=== PATIENT | female | born 1975 | race Caucasian/White ===

== ENCOUNTER 2017-01-29 14:26 | Emergency (ER) | payer MEDICAID, OTHER ==
[2017-01-29 14:51] VITALS: BP 114/55
--- NOTE | 2017-01-29 15:11 | ER Document Report ---
ED Fall - General Chief Complaint: Fall Stated Complaint: FALL HIP PAIN Time Seen by Provider: 01/29/17 15:00 Mode of Arrival: Ambulatory Information source: Patient TRAVEL OUTSIDE OF THE [place] IN LAST 30 DAYS: No - HPI Occurred: Yesterday Where: Public place, Work Context: Lost balance Associated symptoms: denies: Lost consciousness, Dazed/confused, Seizure, Difficulty breathing, Difficulty walking, Became dizzy/fainted, Blood in stool Location of injury/pain: Hip, Knee Quality of pain: Achy, Dull Severity: Moderate Pain Level: 2 Notes: Patient states that she was at work cleaning the table off when her leg got caught causing her to twist hit her left axilla on the top of the chair and injured her right knee. Since that time she has had some mild pain in the left axilla area. She also complains of right knee pain and left hip pain. No numbness, tingling, weakness. She denies head injury. She denies any loss of consciousness. She is on no blood thinners. No fever. No nausea, vomiting, diarrhea. No chest pain or shortness of breath. No abdominal pain. Pain is worse with movement and touch, nothing seems to make it better. - Related data Allergies/Adverse Reactions: hydrocodone bitartrate [From Vicodin] Allergy (Severe, Verified 01/29/17 14:50) rash Past Medical History - Social History Smoking Status: Unknown if Ever Smoked Family History: Reviewed & Not Pertinent - Past Medical History Cardiac Medical History: Denies: Hx Heart Attack, Hx Hypertension Pulmonary Medical History: Reports: Hx Tuberculosis Denies: Hx Asthma Neurological Medical History: Denies: Hx Cerebrovascular Accident, Hx Seizures Renal/ Medical History: Denies: Hx Peritoneal Dialysis GI Medical History: Denies: Hx Hepatitis, Hx Hiatal Hernia, Hx Ulcer Skin Medical History: Reports Hx MRSA - right leg in December and face in January Psychiatric Medical History: Reports: Hx Anxiety Infectious Medical History: Reports: Hx MRSA. Denies: Hx Hepatitis Past Surgical History: Reports: Hx Cholecystectomy, Hx Tonsillectomy, Hx Tubal Ligation. Denies: Hx Mastectomy, Hx Open Heart Surgery, Hx Pacemaker - Immunizations Immunizations up to date: Yes Hx Diphtheria, Pertussis, Tetanus Vaccination: Yes Review of Systems - Review of Systems -: Yes All other systems reviewed and negative Physical Exam - Vital signs Vitals: Temp Pulse Resp BP Pulse Ox 98.6 F 84 16 114/55 L 99 01/29/17 14:49 01/29/17 14:49 01/29/17 14:49 01/29/17 14:49 01/29/17 14:49 - Notes Notes: GENERAL: alert, cooperative, nontoxic, no distress. HEAD: normocephalic, atraumatic EYES: conjunctiva pink without discharge, no external redness or swelling. EARS: no external swelling, no external redness NOSE: atraumatic, no external swelling MOUTH/THROAT: mucous membranes moist and pink, posterior pharynx without erythema, swelling, exudate. No trismus or drooling. NECK: soft, supple, full range of motion, no meningismus. Midline tenderness step-offs or crepitus. CHEST: no distress, lungs clear and equal throughout. No wheezing, rales, rhonchi. CARDIAC: regular rate and rhythm, systolic murmur noted, normal capillary refill , normal pulses. No peripheral edema noted. ABDOMEN: Soft, nontender. BACK: full range of motion, no CVA tenderness. Midline tenderness step-offs or crepitus. EXTREMITIES: full range of motion of all extremities. No redness, no swelling. Mild tenderness to palpation to the left axilla. No ecchymosis. No significant swelling. Normal sensation and strength to the upper extremities. Normal pulses. Mild tenderness to palpation to the left posterior hip. Full range of motion of the left hip. Mild tenderness to palpation of the right anterior knee medial. There is ecchymosis noted. No ligament instability. Full range of motion. Normal pulse and sensation distally. NEURO: alert and oriented x 3, no focal deficits, full range of motion of all extremities. PYSCH: appropriate mood, affect. Patient is cooperative. SKIN: pink, warm, dry, no rash. Course - Re-evaluation Re-evalutation: 01/29/17 16:06 The patient is nontoxic appearing with stable vitals. The patient has right knee and left hip pain after falling. She is no ligament instability. X-rays are negative. Patient has a benign exam with no signs of infection or other serious injury. Patient is also noted to have a heart murmur. She states that she has never had this evaluated. I will refer her to cardiology due to the fact that she has never had that evaluated. She will be discharged home with Naprosyn and Ultram. Ice to sore areas. Follow-up if not better in 1 week, sooner for increased pain, fever, redness, swelling, any further concerns. - Vital Signs Vital signs: Temp Pulse Resp BP Pulse Ox 98.6 F 84 16 114/55 L 99 01/29/17 14:49 01/29/17 14:49 01/29/17 14:49 01/29/17 14:49 01/29/17 14:49 - Diagnostic Test Radiology reviewed: Image reviewed, Reports reviewed - Right knee, left hip negative Discharge - Discharge Clinical Impression: Left hip pain, Heart murmur Contusion of right knee Qualifiers: Encounter type: initial encounter Qualified Code(s): S80.01XA - Contusion of right knee, initial encounter Contusion of left axillary region Qualifiers: Encounter type: initial encounter Qualified Code(s): S40.022A - Contusion of left upper arm, initial encounter Condition: Stable Disposition: HOME, SELF-CARE Instructions: Contusion ([facility]) Additional Instructions: Take medications as prescribed. Ice to sore areas. Follow-up with your family doctor if not better in 1 week. Follow-up with cardiology at the next available appointment due to heart murmur. Follow-up sooner for increased pain , fever, redness, any further concerns. Prescriptions: Naproxen 500 mg PO BID #20 tablet Tramadol HCl [Ultram] 50 mg PO TID PRN #10 tablet PRN Reason: Referrals: MONE CASTILLO MD [ACTIVE STAFF] - Follow up as needed
--- NOTE | 2017-01-29 15:46 | RADIOLOGY REPORT (SQ) ---
EXAM DESCRIPTION: KNEE RIGHT 3 VIEWS COMPLETED DATE/TIME: 01/29/2017 3:38 pm REASON FOR STUDY: FALL, PAIN COMPARISON: None. NUMBER OF VIEWS: Three views. TECHNIQUE: AP, lateral, and sunrise patella radiographic images acquired of the right knee. LIMITATIONS: None. FINDINGS: MINERALIZATION: Normal. BONES: No acute fracture or dislocation. No worrisome bone lesions. JOINT: No effusion. SOFT TISSUES: No soft tissue swelling. No radio-opaque foreign body. OTHER: Osteoarthritis patellofemoral compartment. IMPRESSION: NO RADIOGRAPHIC EVIDENCE OF ACUTE INJURY. TECHNICAL DOCUMENTATION: JOB ID: [id number] [employer]- All Rights Reserved
--- NOTE | 2017-01-29 15:47 | RADIOLOGY REPORT (SQ) ---
EXAM DESCRIPTION: HIP LEFT AP/LATERAL COMPLETED DATE/TIME: 01/29/2017 3:38 pm REASON FOR STUDY: FALL, PAIN COMPARISON: 08/17/2010 NUMBER OF VIEWS: Two views. TECHNIQUE: AP pelvis and additional frog-leg view of the left hip. LIMITATIONS: None. FINDINGS: MINERALIZATION: Normal. LEFT HIP: No fracture or dislocation. No worrisome bone lesions. RIGHT HIP: No fracture or dislocation. No worrisome bone lesions. PUBIS AND ISCHIUM: No fracture. PELVIS: No fracture. SACRUM: No fracture or dislocation. No worrisome bone lesions. LOWER LUMBAR SPINE: No fracture or dislocation. No worrisome bone lesions. No significant disc disea se. SOFT TISSUES: Tubal ligation clips. OTHER: No other significant finding. IMPRESSION: NO RADIOGRAPHIC EVIDENCE OF ACUTE INJURY. TECHNICAL DOCUMENTATION: JOB ID: [id number] [employer]- All Rights Reserved
[2017-01-29] MEDS ORDERED: TRAMADOL HCL 50 MG TABLET PO ONE (16:13)
== END 2017-01-29 16:36 | disposition home or self-care (01) ==
LOC: ER 14:26
DX: S40.022A Contusion of left upper arm, initial encounter (principal); S80.01XA Contusion of right knee, initial encounter; R01.1 Cardiac murmur, unspecified; M25.552 Pain in left hip; M25.561 Pain in right knee; W19.XXXA Unspecified fall, initial encounter
CPT/HCPCS: 99283

== ENCOUNTER → 2017-05-24 | Outpatient (CLI) | payer OTHER ==
--- NOTE | 2017-05-24 16:26 | WOMENS IMAGING REPORT ---
EXAM DESCRIPTION: BILAT DIAGNOSTIC MAMMO W/CAD; U/S BREAST UNILAT LIMITED COMPLETED DATE/TIME: 05/24/2017 1:25 pm; 05/24/2017 2:54 pm REASON FOR STUDY: UNSPECIFIED LUMP; N63.10; BILATERAL BREAST N63.21,N63.11 N63.10 UNSPECIFIED LUMP IN THE RIGHT BREAST, UNSPECIFIED RHIANNA COMPARISON: None. TECHNIQUE: Standard craniocaudal and mediolateral oblique views of each breast recorded using digita l acquisition. Additional cone compression right breast in the CC and MLO orientations, left breast in the CC and ML O orientations. Additional bilateral whole breast 90 mediolateral views. Bilateral breast ultrasou nd was also performed LIMITATIONS: None. FINDINGS: RIGHT BREAST MASSES: No suspicious masses. CALCIFICATIONS: No new or suspicious calcifications. ARCHITECTURAL DISTORTION: None. DEVELOPING DENSITY: None. ASYMMETRY: None noted. OTHER: No other significant findings. LEFT BREAST MASSES: No suspicious masses. CALCIFICATIONS: No new or suspicious calcifications. ARCHITECTURAL DISTORTION: None. DEVELOPING DENSITY: None. ASYMMETRY: None noted. OTHER: No other significant finding. Read with the assistance of CAD: .[facility] - R2 Cenova Version 1.3 .[facility] Imaging - R2 Cenova Version 1.3 .[facility] Imaging - R2 Cenova Version 2.4 .[facility] - R2 Cenova Version 2.4 .[facility] - R2 Music Education Adjunct Professor Version 9.2 Bilateral breast ultrasound: On the right side, patient indicates a palpable abnormality in the lower inner quadrant. No focal so nographic findings. No cysts. No masses. No worrisome acoustic absorption. Ultrasound of the righ t upper outer quadrant in an area of dense tissue also demonstrates no focal findings. On the left side, patient has a palpable questionable abnormality medially at about the 9 to 10 o'jorge ck position. Ultrasound of this area is unremarkable. No cysts. No solid nodules. No worrisome ac oustic absorption. No focal findings. Patient indicates another questionable palpable abnormality in the left breast upper outer quadrant. Ultrasound of this area demonstrates a 4 mm cyst at the 1 to 2 o'clock position. No solid nodules. No worrisome acoustic absorption. IMPRESSION: No mammographic or sonographic evidence for malignancy bilaterally BREAST DENSITY: c. The breasts are heterogeneously dense, which may obscure small masses. BIRAD: 2 Benign findings. RECOMMENDATION: RECOMMENDED FOLLOW UP: Please continue yearly bilateral screening mammography in May. Consider bilateral screening tomosynthesis given heterogeneously dense tissue SPECIFIC INTERVENTION/IMAGING/CONSULTATION RECOMMENDED:No additional intervention/ imaging/consultati on needed at this time. COMMUNICATION:Patient notified by letter COMMENT: The patient has been notified of the results by letter per SA requirements. Additional no tification policies are in place for contacting patient with suspicious or incomplete findings. Quality ID #[id number]: The [employer] recommends an annual screening mammogram for women aged 40 years or over. This facility utilizes a reminder system to ensure that all patients receive reminder letters, and/or direct phone calls for appointments. This includes reminders for routine scr eening mammograms, diagnostic mammograms, or other Breast Imaging Interventions when appropriate. Th is patient will be placed in the appropriate reminder system. The [employer] (ACR) has developed recommendations for screening MRI of the breast s in certain patient populations, to be used in conjunction with mammography. Breast MRI surveillanc e may be appropriate for women with more than 20% lifetime risk of developing breast cancer as deter mined by genetic testing, significant family history of the disease, or history of mantle radiation f or Hodgkins Disease. ACR Practice Guidelines 2008. TECHNICAL DOCUMENTATION: FINDING NUMBER: (1) ASSESSMENT: (1) JOB ID: [id number] [email or web address]- All Rights Reserved
--- NOTE | 2017-05-24 16:26 | WOMENS IMAGING REPORT ---
EXAM DESCRIPTION: BILAT DIAGNOSTIC MAMMO W/CAD; U/S BREAST UNILAT LIMITED COMPLETED DATE/TIME: 05/24/2017 1:25 pm; 05/24/2017 2:54 pm REASON FOR STUDY: UNSPECIFIED LUMP; N63.10; BILATERAL BREAST N63.21,N63.11 N63.10 UNSPECIFIED LUMP IN THE RIGHT BREAST, UNSPECIFIED RHIANNA COMPARISON: None. TECHNIQUE: Standard craniocaudal and mediolateral oblique views of each breast recorded using digita l acquisition. Additional cone compression right breast in the CC and MLO orientations, left breast in the CC and ML O orientations. Additional bilateral whole breast 90 mediolateral views. Bilateral breast ultrasou nd was also performed LIMITATIONS: None. FINDINGS: RIGHT BREAST MASSES: No suspicious masses. CALCIFICATIONS: No new or suspicious calcifications. ARCHITECTURAL DISTORTION: None. DEVELOPING DENSITY: None. ASYMMETRY: None noted. OTHER: No other significant findings. LEFT BREAST MASSES: No suspicious masses. CALCIFICATIONS: No new or suspicious calcifications. ARCHITECTURAL DISTORTION: None. DEVELOPING DENSITY: None. ASYMMETRY: None noted. OTHER: No other significant finding. Read with the assistance of CAD: .[facility] - R2 Cenova Version 1.3 .[facility] Imaging - R2 Cenova Version 1.3 .[facility] - R2 Cenova Version 2.4 .[facility] - R2 Cenova Version 2.4 .[facility] - R2 Wood And Hardware Outfitter Version 9.2 Bilateral breast ultrasound: On the right side, patient indicates a palpable abnormality in the lower inner quadrant. No focal so nographic findings. No cysts. No masses. No worrisome acoustic absorption. Ultrasound of the righ t upper outer quadrant in an area of dense tissue also demonstrates no focal findings. On the left side, patient has a palpable questionable abnormality medially at about the 9 to 10 o'jorge ck position. Ultrasound of this area is unremarkable. No cysts. No solid nodules. No worrisome ac oustic absorption. No focal findings. Patient indicates another questionable palpable abnormality in the left breast upper outer quadrant. Ultrasound of this area demonstrates a 4 mm cyst at the 1 to 2 o'clock position. No solid nodules. No worrisome acoustic absorption. IMPRESSION: No mammographic or sonographic evidence for malignancy bilaterally BREAST DENSITY: c. The breasts are heterogeneously dense, which may obscure small masses. BIRAD: 2 Benign findings. RECOMMENDATION: RECOMMENDED FOLLOW UP: Please continue yearly bilateral screening mammography in May. Consider bilateral screening tomosynthesis given heterogeneously dense tissue SPECIFIC INTERVENTION/IMAGING/CONSULTATION RECOMMENDED:No additional intervention/ imaging/consultati on needed at this time. COMMUNICATION:Patient notified by letter COMMENT: The patient has been notified of the results by letter per SA requirements. Additional no tification policies are in place for contacting patient with suspicious or incomplete findings. Quality ID #[id number]: The [employer] recommends an annual screening mammogram for women aged 40 years or over. This facility utilizes a reminder system to ensure that all patients receive reminder letters, and/or direct phone calls for appointments. This includes reminders for routine scr eening mammograms, diagnostic mammograms, or other Breast Imaging Interventions when appropriate. Th is patient will be placed in the appropriate reminder system. The [employer] (ACR) has developed recommendations for screening MRI of the breast s in certain patient populations, to be used in conjunction with mammography. Breast MRI surveillanc e may be appropriate for women with more than 20% lifetime risk of developing breast cancer as deter mined by genetic testing, significant family history of the disease, or history of mantle radiation f or Hodgkins Disease. ACR Practice Guidelines 2008. TECHNICAL DOCUMENTATION: FINDING NUMBER: (1) ASSESSMENT: (1) JOB ID: [id number] [employer]- All Rights Reserved
--- NOTE | 2017-05-24 16:26 | WOMENS IMAGING REPORT ---
EXAM DESCRIPTION: BILAT DIAGNOSTIC MAMMO W/CAD; U/S BREAST UNILAT LIMITED COMPLETED DATE/TIME: 05/24/2017 1:25 pm; 05/24/2017 2:54 pm REASON FOR STUDY: UNSPECIFIED LUMP; N63.10; BILATERAL BREAST N63.21,N63.11 N63.10 UNSPECIFIED LUMP IN THE RIGHT BREAST, UNSPECIFIED RHIANNA COMPARISON: None. TECHNIQUE: Standard craniocaudal and mediolateral oblique views of each breast recorded using digita l acquisition. Additional cone compression right breast in the CC and MLO orientations, left breast in the CC and ML O orientations. Additional bilateral whole breast 90 mediolateral views. Bilateral breast ultrasou nd was also performed LIMITATIONS: None. FINDINGS: RIGHT BREAST MASSES: No suspicious masses. CALCIFICATIONS: No new or suspicious calcifications. ARCHITECTURAL DISTORTION: None. DEVELOPING DENSITY: None. ASYMMETRY: None noted. OTHER: No other significant findings. LEFT BREAST MASSES: No suspicious masses. CALCIFICATIONS: No new or suspicious calcifications. ARCHITECTURAL DISTORTION: None. DEVELOPING DENSITY: None. ASYMMETRY: None noted. OTHER: No other significant finding. Read with the assistance of CAD: .[facility] - R2 Cenova Version 1.3 .[facility] Imaging - R2 Cenova Version 1.3 .[facility] Imaging - R2 Cenova Version 2.4 .[facility] [place] [place] - R2 Cenova Version 2.4 .[facility] - R2 Produce Department Manager Version 9.2 Bilateral breast ultrasound: On the right side, patient indicates a palpable abnormality in the lower inner quadrant. No focal so nographic findings. No cysts. No masses. No worrisome acoustic absorption. Ultrasound of the righ t upper outer quadrant in an area of dense tissue also demonstrates no focal findings. On the left side, patient has a palpable questionable abnormality medially at about the 9 to 10 o'jorge ck position. Ultrasound of this area is unremarkable. No cysts. No solid nodules. No worrisome ac oustic absorption. No focal findings. Patient indicates another questionable palpable abnormality in the left breast upper outer quadrant. Ultrasound of this area demonstrates a 4 mm cyst at the 1 to 2 o'clock position. No solid nodules. No worrisome acoustic absorption. IMPRESSION: No mammographic or sonographic evidence for malignancy bilaterally BREAST DENSITY: c. The breasts are heterogeneously dense, which may obscure small masses. BIRAD: 2 Benign findings. RECOMMENDATION: RECOMMENDED FOLLOW UP: Please continue yearly bilateral screening mammography in May. Consider bilateral screening tomosynthesis given heterogeneously dense tissue SPECIFIC INTERVENTION/IMAGING/CONSULTATION RECOMMENDED:No additional intervention/ imaging/consultati on needed at this time. COMMUNICATION:Patient notified by letter COMMENT: The patient has been notified of the results by letter per SA requirements. Additional no tification policies are in place for contacting patient with suspicious or incomplete findings. Quality ID #[id number]: The [employer] recommends an annual screening mammogram for women aged 40 years or over. This facility utilizes a reminder system to ensure that all patients receive reminder letters, and/or direct phone calls for appointments. This includes reminders for routine scr eening mammograms, diagnostic mammograms, or other Breast Imaging Interventions when appropriate. Th is patient will be placed in the appropriate reminder system. The [employer] (ACR) has developed recommendations for screening MRI of the breast s in certain patient populations, to be used in conjunction with mammography. Breast MRI surveillanc e may be appropriate for women with more than 20% lifetime risk of developing breast cancer as deter mined by genetic testing, significant family history of the disease, or history of mantle radiation f or Hodgkins Disease. ACR Practice Guidelines 2008. TECHNICAL DOCUMENTATION: FINDING NUMBER: (1) ASSESSMENT: (1) JOB ID: [id number] [employer]- All Rights Reserved
== END ==
LOC: WI 12:56
DX: N63.14 Unspecified lump in the right breast, lower inner quadrant (principal); N60.02 Solitary cyst of left breast
CPT/HCPCS: 76642; G0204; 77066

== ENCOUNTER 2018-07-05 08:49 | Emergency (ER) | payer SELFPAY ==
[2018-07-05 08:59] VITALS: BP 105/66
--- NOTE | 2018-07-05 09:23 | ER Document Report ---
HPI - HPI Time Seen by Provider: 07/05/18 09:08 Pain Level: 4 Notes: Patient is a 43-year-old female with a history of sinus abscess to her left maxillary who presents emergency department complaining of sinus pressure, nasal congestion/discharge, occasional dry nonproductive cough, and now left ear pain. Patient states that her symptoms have been ongoing for over a week. She is eating and drinking without difficulty. She is urinating normally. Denies drug allergies. No other concerns or complaints. Denies any headache, fever, neck pain, sore throat, chest pain, palpitations, syncope, shortness of breath, wheeze, dyspnea, abdominal pain, nausea/vomiting/diarrhea, urinary retention, dysuria, hematuria, or rash. - ROS Systems Reviewed and Negative: Yes All other systems reviewed and negative - CONSTITUTIONAL Constitutional: REPORTS: Fever - 100-101 at home - EENT EENT: REPORTS: Ear Pain - L - REPRODUCTIVE Reproductive: DENIES: : Past Medical History - Social History Smoking Status: Never Smoker Chew tobacco use (# tins/day): No Frequency of alcohol use: None Drug Abuse: None Family History: Reviewed & Not Pertinent Patient has suicidal ideation: No Patient has homicidal ideation: No - Past Medical History Cardiac Medical History: Denies: Hx Heart Attack, Hx Hypertension Pulmonary Medical History: Reports: Hx Tuberculosis Denies: Hx Asthma Neurological Medical History: Denies: Hx Cerebrovascular Accident, Hx Seizures Renal/ Medical History: Denies: Hx Peritoneal Dialysis GI Medical History: Denies: Hx Hepatitis, Hx Hiatal Hernia, Hx Ulcer Skin Medical History: Reports Hx MRSA - right leg in December and face in January Psychiatric Medical History: Reports: Hx Anxiety Infectious Medical History: Reports: Hx MRSA. Denies: Hx Hepatitis Past Surgical History: Reports: Hx Cholecystectomy, Hx Tonsillectomy, Hx Tubal Ligation. Denies: Hx Mastectomy, Hx Open Heart Surgery, Hx Pacemaker - Immunizations Immunizations up to date: Yes Hx Diphtheria, Pertussis, Tetanus Vaccination: Yes Vertical Provider Document - CONSTITUTIONAL Agree With Documented VS: Yes Notes: PHYSICAL EXAMINATION: GENERAL: Well-appearing, well-nourished and in no acute distress. A&Ox4. Answers questions appropriately. Moves comfortably w/o notable distress HEAD: Atraumatic, normocephalic. EYES: Pupils equal round and reactive to light, extraocular movements intact, sclera anicteric, conjunctiva are normal. ENT: EAC clear b/l. Left TM is dull. Rt TM wnl. Nares patent and with clear/yellow discharge. oropharynx no erythema without exudates. No tonsilar hypertrophy without erythema or exudate. No palatine shift. Uvula midline. No tongue protrusion. No drooling, hoarseness, or airway compromise. Moist mucous membranes. + maxillary sinus tenderness. NECK: Normal range of motion, supple without lymphadenopathy. No rigidity/meningismus. LUNGS: Breath sounds clear to auscultation bilaterally and equal. No wheezes rales or rhonchi. No retractions HEART: Regular rate and rhythm without murmurs, rubs, gallops. ABDOMEN: Soft, nontender, nondistended abdomen. No guarding, no rebound. No masses appreciated. Normal bowel sounds present. No CVA tenderness bilaterally. No hepatosplenomegaly. NEUROLOGICAL: Normal speech, normal gait. Normal sensory, motor exams PSYCH: Normal mood, normal affect. SKIN: Warm, Dry, normal turgor, no rashes or lesions noted. - INFECTION CONTROL TRAVEL OUTSIDE OF THE [place] IN LAST 30 DAYS: No Course - Re-evaluation Re-evalutation: 07/05/18 09:20 Patient is an afebrile, well-hydrated, 43-year-old female who presents to the ED with acute URI/sinusitis, suspect viral. Vitals are acceptable. PE is otherwise unremarkable. No labs or imaging warranted at this time based on H&P. Patient has no significant cardiopulmonary or immunocompromised medical conditions. Patient's lungs are clear to auscultation bilaterally without tachycardia, hypoxia, or tachypnea. Patient is tolerating p.o. without any difficulties. Low suspicion for any meningitis, sepsis, peritonsillar/pharyngeal abscess, respiratory compromise, severe dehydration, or other emergent systemic condition at this time. Patient is aware this condition can change from initial presentation and she needs to monitor symptoms closely. Due to her sinus abscess history requiring surgery, I will send her home with a prescription for Keflex that she may begin with ongoing/worsening symptoms over the next few days. Patient cannot afford expensive medications and this is the medicine that she requested. Conservative measures otherwise for symptoms. Recheck with your PCM in 3-5 days. Return to the ED with any worsening/concerning symptoms otherwise as reviewed in discharge. Patient is in agreement. - Vital Signs Vital signs: Temp Pulse Resp BP Pulse Ox 98.2 F 68 18 105/66 100 07/05/18 08:57 07/05/18 08:57 07/05/18 08:57 07/05/18 08:57 07/05/18 08:57 Discharge - Discharge Clinical Impression: Sinus pain, Cough, Otalgia of left ear Condition: Stable Disposition: HOME, SELF-CARE Additional Instructions: Maintain adequate fluid intake Take meds as directed tylenol/ibuprofen as needed over the counter cold medication as needed for symptoms Humidified air may help Wash your hands regularly Wear a mask when coughing F/u: with your PCM in 3-5 days for a recheck Return to the ED with any fever, worsening pain, chest pain, palpitations, syncope, worsening [place], neck pain/stiffness, shortness of breath, wheezing, drooling, trouble swallowing/breathing, abdominal pain, n/v/d, rash, or worsening/concerning symptoms otherwise. Prescriptions: Cephalexin Monohydrate [Keflex 500 mg Capsule] 500 mg PO TID #30 capsule [facility] - Follow up as needed [facility] [Provider Group] - Follow up as needed
== END 2018-07-05 09:29 | disposition home or self-care (01) ==
LOC: ER 08:49
DX: R09.81 Nasal congestion (principal); H92.02 Otalgia, left ear; R05 Cough; Z86.14 Personal history of Methicillin resistant Staphylococcus aureus infection; Z90.49 Acquired absence of other specified parts of digestive tract; Z98.51 Tubal ligation status
CPT/HCPCS: 99282